=== PATIENT | female | born 1970 | race Two or more races ===

== ENCOUNTER 2025-02-20 15:32 | Emergency (ER) | payer OTHER, SELFPAY ==
[2025-02-20 16:10] VITALS: BP 145/80; PULSE 88; RESP 18; TEMP 36.9; O2SAT 99
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
[2025-02-20] MEDS: PROPARACAINE OP SOL 0.5% 15 ML BTL LEFT EYE (17:14)
[2025-02-20] MEDS: FLUORESCEIN SOD 1 MG STRP LEFT EYE (17:14)
== END 2025-02-20 19:05 | disposition home or self-care (01) ==
LOC: SERX 19:15
PROVIDERS: Emergency Provider Emergency Medicine
DX: T65.891A Toxic effect of other specified substances, accidental (unintentional), initial encounter (principal); T26.62XA Corrosion of cornea and conjunctival sac, left eye, initial encounter; H43.392 Other vitreous opacities, left eye; Y92.511 Restaurant or cafe as the place of occurrence of the external cause
CPT/HCPCS: 99283